=== PATIENT | female | born 2000 | race Caucasian/White ===

== ENCOUNTER 2023-07-07 13:03 | Emergency (ER) | payer BC ==
[~2023-07-07] VITALS: Ht 162.6 cm; Wt 70.5 kg
[2023-07-07 13:41] VITALS: TEMP 98.7
[2023-07-07 13:54] LABS: BASOPHILS # (AUTO) 0.1 X10'3 (0-0.2); BASOPHILS % (AUTO) 0.6 % (0-1); EOSINOPHILS # (AUTO) 0.3 X10'3 (0-0.9); EOSINOPHILS % (AUTO) 2.4 % (0-6); HEMOGLOBIN 14.8 g/dl (12.0-16.0); LYMPHOCYTES # (AUTO) 2.9 X10'3 (1.1-4.8); LYMPHOCYTES % (AUTO) 27.6 % (21-51); MEAN CORPUSCULAR HEMOGLOBIN 31.4 PG (27.0-31.0); MEAN CORPUSCULAR HGB CONC 34.5 g/dL (33.0-36.5); MEAN CORPUSCULAR VOLUME 91.1 FL (78-98); MEAN PLATELET VOLUME 8.7 FL (7.4-10.4); MONOCYTES # (AUTO) 0.8 X10'3 (0-0.9); MONOCYTES % (AUTO) 7.9 % (2-12); NEUTROPHILS # (AUTO) 6.5 X10'3 (1.8-7.7); NEUTROPHILS % (AUTO) 61.5 % (42-75); PLATELET COUNT 302 X10'3 (140-440); RED BLOOD COUNT 4.72 X10'6 (4.20-5.60); RED CELL DISTRIBUTION WIDTH 12.5 % (11.5-14.5); WHITE BLOOD COUNT 10.6 X10'3 (4.5-11.0)
[2023-07-07 14:07] LABS: ALANINE AMINOTRANSFERASE 33 U/L (12-78); ALBUMIN 3.9 G/DL (3.4-5.0); ALKALINE PHOSPHATASE 92 IU/L (46-116); ANION GAP 17 (8-16); ASPARTATE AMINO TRANSFERASE 23 U/L (10-37); BILIRUBIN,TOTAL 0.6 MG/DL (0.1-1.0); BLOOD UREA NITROGEN 8 MG/DL (7-18); BUN/CREATININE RATIO 10.7 (10.0-20.0); CALCIUM 9.5 MG/DL (8.5-10.1); CHLORIDE 105 MMOL/L (99-107); CREATININE 0.75 MG/DL (0.40-0.90); GLUCOSE 108 MG/DL (70-104); SODIUM 141 MMOL/L (135-145); TOTAL CARBON DIOXIDE 19.3 MMOL/L (24-32); eCRCL 102 ML/MIN; eGFR > 90 ML/MIN
[2023-07-07 14:13] LABS: PRO BRAIN NATRIURETIC PEPTIDE 37 PG/ML (0-125)
[2023-07-07 14:27] LABS: MAGNESIUM 1.9 MG/DL (1.5-2.4)
[2023-07-07] MEDS ORDERED: ketorolac tromethamine 15mg/ml inj. IM ONE (17:30)
[2023-07-07] MEDS ORDERED: diazepam inj 5 MG/ML inj. IM ONE (17:30)
[2023-07-07] MEDS ORDERED: NAPR-56 PO (17:40)
[2023-07-07 17:53] VITALS: BP 114/63; PULSE 69; RESP 17; O2SAT 99
== END 2023-07-07 17:55 | disposition home or self-care (01) ==
LOC: ER 13:03
DX: M94.0 Chondrocostal junction syndrome [Tietze] (principal); F41.9 Anxiety disorder, unspecified; Z88.1 Allergy status to other antibiotic agents; Z79.899 Other long term (current) drug therapy
CPT/HCPCS: 36415; 71045; 80053; 83735; 83880; 84484; 85025; 93005; 96372; 99285; J1885; J3360